=== PATIENT | male | born 1995 | race Caucasian/White ===

== ENCOUNTER 2025-01-26 13:41 | Outpatient (AMB) | payer OTHER, SELFPAY ==
--- NOTE | 2025-01-26 13:57 | MHC.PC.OV ---
Vital Signs 01/26/25 14:01 Height 5 ft 9.09 in Weight 177 lb 4 oz BMI 26.1 BP 127/66 Blood Pressure Location Rt brachial Position Sitting Respiration 16 Pulse 72 Pulse Source Pulse Oximeter Temp 97.9 F Temp Source Oral Pulse Oximetry (%) 99 Oxygen Delivery Method Room Air Intake Visit Reasons: heart issues Regulatory Affairs Intern Required: No Accompanied by: Self / Same As Patient Allergies No Known Allergies Allergy (Verified 01/26/25 13:57) Tobacco use date assessed: 01/26/25 Dental Screening Dental Screen Date: 01/26/25 Did you have a dental visit in the last 12 months?: No Did you have a dental problem in the last 6 months where you did not have access to dental care?: No Was dental information given to patient?: No HPI HPI Comments History of Present Illness Details History of Present Illness The patient is a 29-year-old male presenting with symptoms of gastroesophageal reflux disease and dysphagia. Gastroesophageal reflux disease (GERD): - The patient reports throat closure when swallowing, leading to anxiety and elevated heart rate, with a pulse reaching 178 bpm, necessitating a hospital visit where GERD was diagnosed. - Experiences severe pain when swallowing food, water, or saliva, and reports stomach gallops, suggesting significant acid reflux. - Symptoms have persisted despite medication, with increased frequency of bowel movements noted after medication use. - Initially prescribed lansoprazole 30 mg, which was ineffective, leading to a switch to pantoprazole 40 mg twice daily. - Denies any history of diabetes or hypertension, although recent blood pressure readings were elevated. Dysphagia: - Reports difficulty swallowing, with the sensation of throat closure occurring primarily when attempting to swallow food, water, or saliva. - Associated with significant pain and anxiety, exacerbating the patient's symptoms. - A barium swallow study has been ordered to assess for structural abnormalities contributing to the dysphagia. Anxiety: - Experiences anxiety secondary to the sensation of throat closure and difficulty swallowing. - Symptoms include elevated heart rate and blood pressure during episodes of dysphagia. - Management plan includes addressing the underlying GERD and dysphagia to alleviate anxiety symptoms. Hypertension: - Reports elevated blood pressure readings, with a recent measurement of 150/70 mmHg. - Appears to be episodic, correlating with anxiety and GERD symptoms. - Monitoring and management of GERD and anxiety are expected to help control blood pressure levels. Stye in the right lower lid -started 4 days ago -does not complain of pain -has not taking anything for it or done anything for it Review of Systems - Gastrointestinal: Reports dysphagia and severe pain when swallowing. Denies nausea or vomiting. - Cardiovascular: Reports elevated heart rate and blood pressure during episodes of dysphagia. Denies chest pain. - Neurological: Reports anxiety associated with swallowing difficulties. Denies headaches or dizziness. 10-point ROS reviewed and negative except as noted in HPI Past Medical History - No known history of diabetes or chronic hypertension. Health Maintenance - Advised to follow up with a cloth brushing and sueding supervisor for further evaluation of GERD and dysphagia. Physical Exam General: Well-appearing, in no acute distress. Vital signs: Blood pressure recorded as high, 150/70 something. Pulse was noted to be 178 beats per minute at one point. HEENT: Normocephalic, atraumatic. PERRLA, EOMI. Conjunctiva clear, sclera anicteric. Oropharynx clear, mucous membranes moist. TMs intact bilaterally. Neck: Supple, no lymphadenopathy, no thyromegaly, no JVD or carotid bruits. Ultrasound of the neck recommended to rule out thyroid issues due to family history. Cardiovascular: RRR, normal S1/S2, no murmurs, rubs, or gallops. Peripheral pulses 2+ and symmetric. No edema. Respiratory: Lungs clear to auscultation bilaterally, no wheezes, rales, or rhonchi. Normal effort. Abdomen: Soft, non-tender, non-distended. Normoactive bowel sounds. No hepatosplenomegaly, no masses. Patient reports dysphagia and acid indigestion. MSK: Full range of motion, no joint swelling or deformity. Normal gait. Skin: Warm, dry, intact. No rashes, lesions, or pallor. Edema of the right lower eyelid Neuro: Alert and oriented x3. Cranial nerves II-XII intact. Strength 5/5 throughout. Sensation intact. Reflexes 2+ symmetric. Normal coordination and gait. Psych: Appropriate mood and affect. Normal judgment and insight. Anxiety noted, possibly secondary to dysphagia and acid indigestion. Plan 1. Gastroesophageal Reflux Disease (Gerd) - Switch from lansoprazole to pantoprazole 40 mg twice daily to manage reflux symptoms. - Order a barium swallow study to assess for structural abnormalities. - Refer to a cloth brushing and sueding supervisor for further evaluation and management. 2. Dysphagia - Order a barium swallow study to evaluate swallowing difficulties. - Refer to a cloth brushing and sueding supervisor for further evaluation and management. 3. Anxiety - Focus on addressing underlying GERD and dysphagia to alleviate anxiety symptoms. 4. Hypertension - Advise monitoring of blood pressure, with management of GERD and anxiety expected to help control hypertension. 5-hordeolum the right lower eyelid -acetaminophen for pain -Warm compresses Discussion Notes I discussed with the patient the likely diagnosis of gastroesophageal reflux disease and the associated symptoms of dysphagia and anxiety. We reviewed the management plan, including switching to pantoprazole, ordering a barium swallow study, and referring to a cloth brushing and sueding supervisor. I emphasized the importance of follow-up to monitor symptoms and adjust treatment as necessary. Patient was informed and verbally consented to the use of an ambient scribe for clinic note documentation during this visit. Patient Instructions - Take pantoprazole 40 mg twice daily as prescribed. - Attend the scheduled barium swallow study to evaluate swallowing difficulties. - Follow up with the cloth brushing and sueding supervisor as recommended. - Monitor blood pressure regularly and report any significant changes. [facility] Medical History (Updated 01/26/25 @ 14:28 by Aiden Maradiaga MD) Dysphagia Globus pharyngeus Acid indigestion Family History (Updated 01/26/25 @ 14:05 by Oksana Portillo MA) Father No problems noted. Mother Diverticulitis High blood pressure Social History (Updated 01/26/25 @ 14:06 by Oksana Portillo MA) Housing: Apartment Alcohol intake: current Alcohol intake frequency: a few times a week Alcohol type: beer Patient Tobacco Use Status: Never used Tobacco service: Yes Current occupational status: employed Cognitive needs: No Hearing needs: No Vision needs: No Questionnaire PHQ-9 Over the last 2 weeks, how often have you been bothered by any of the following problems? 1. Little interest or pleasure in doing things: several days 2. Feeling down, depressed, or hopeless: several days 3. Trouble falling or staying asleep, or sleeping too much: more than half the days 4. Feeling tired or having little energy: more than half the days 5. Poor appetite or overeating: more than half the days 6. Feeling bad about yourself - or that you are a failure or have let yourself or your family down: not at all 7. Trouble concentrating on things, such as reading the newspaper or watching television: not at all 8. Moving or speaking so slowly that other people could have noticed. Or the opposite - being so fidgety or restless that you have been moving around a lot more than usual: more than half the days 9. Thoughts that you would be better off or of hurting yourself in some way: not at all Total score: 10 Depression Screening Interpretation: Positive Depression Screening Done: Yes Source: Developed by Drs. Joe Jensen, Rabia Alberto, Aldair Madrigal and colleagues, with an educational padmaja from [email or web address]. Thrive Questionnaire Date Thrive assessed: 01/26/25 I am a: Patient What is your living situation today?: I have a steady place to live Within the past 12 months, did the food you bought not last and you didn't have the money to get more?: Never true Within the past 12 months, did you worry whether your food would run out before you got money to buy more?: Never true Do you have trouble paying for medicines?: I choose not to answer this question Do you have trouble getting transportation to medical appointments?: No Do you have trouble paying your heating and electricity bill?: No Do you have trouble taking care of your child, family member or friend?: No Do you have trouble with day-to-day activities such as bathing, preparing meals, shopping, managing finances, etc.?: No Are you currently unemployed and looking for a job?: No Are you interested in more education?: Yes Please select the resources that you would like help with: Utilities and Childcare Currently or been in a relationship where the following occur: No concerns reported THRIVE Score: 0 AUDIT C Alcohol Use Questionnaire (AUDIT-C) 1. How often do you have a drink containing alcohol?: 2-4 times a month 2. How many drinks containing alcohol do you have on a typical day when you are drinking?: 7 to 9 3. How often do you have six or more drinks on one occasion?: Monthly Total Score: 7 Score Reviewed/Action Taken: Yes SUSU-7 AMB Questionnaire SUSU-7 Feeling nervous, anxious, or on edge: 1 = Several days Not being able to stop or control worryin = Several days Worrying too much about different things: 1 = Several days Trouble relaxin = Several days Being so restless that it is hard to sit still: 1 = Several days Becoming easily annoyed or irritable: 1 = Several days Feeling afraid as if something awful might happen: 1 = Several days Total SUSU-7 score (0-4 normal; 5-9 mild; 10-14 moderate; 15-21 severe): 7 Source: Developed by Drs. Joe Jensen, Rabia Alberto, Aldair Madrigal and colleagues, with an educational padmaja from [email or web address]. Physical exam (Primary Care) Vital Signs: Last Vital Signs Temp 97.9 F 01/26/25 14:01 Pulse 72 01/26/25 14:01 Resp 16 01/26/25 14:01 BP 127/66 01/26/25 14:01 Pulse Ox 99 01/26/25 14:01 Oxygen Delivery Method Room Air 01/26/25 14:01 BMI result Body Mass Index 26.1 Tobacco/Smoking Status: Tobacco use Status Tobacco use date assessed 01/26/25 01/26/25 13:59 Patient Tobacco Use Status Never used Tobacco 01/26/25 14:06 PHQ-9: PHQ-9 Score PHQ-9: Total score 10 01/26/25 14:09 Depression Screening Interpretation: Positive Thrive Assessment: Date of Thrive Assessment Date Thrive assessed 01/26/25 01/26/25 13:59 Currently or been in a relationship where the following occur: No concerns reported Coding Level of Care Code New Pt Level 3 (27262) Diagnoses Encounter to establish care with new provider Z76.89 Encounter for screening, unspecified Z13.9 Counseling, unspecified Z71.9 Screening for diabetes mellitus Z13.1 Screening for lipoid disorders Z13.220 Hypertension screen Z13.6 Screening for depression Z13.31 Screening for HIV (human immunodeficiency virus) Z11.4 Routine screening for STI (sexually transmitted infection) Z11.3 Alcohol abuse F10.10 Acid indigestion K30 Globus pharyngeus R09.A2 Dysphagia R13.10 Hordeolum externum right lower eyelid H00.012 Assessment & Plan Assessment & Plan (1) Encounter to establish care with new provider: Code(s): Z76.89 - Persons encountering health services in other specified circumstances (2) Encounter for screening, unspecified: Code(s): Z13.9 - Encounter for screening, unspecified (3) Counseling, unspecified: Code(s): Z71.9 - Counseling, unspecified (4) Screening for diabetes mellitus: Code(s): Z13.1 - Encounter for screening for diabetes mellitus (5) Screening for lipoid disorders: Code(s): Z13.220 - Encounter for screening for lipoid disorders (6) Hypertension screen: Code(s): Z13.6 - Encounter for screening for cardiovascular disorders (7) Screening for depression: Code(s): Z13.31 - Encounter for screening for depression (8) Screening for HIV (human immunodeficiency virus): Code(s): Z11.4 - Encounter for screening for human immunodeficiency virus [HIV] (9) Routine screening for STI (sexually transmitted infection): Code(s): Z11.3 - Encounter for screening for infections with a predominantly sexual mode of transmission (10) Alcohol abuse: Code(s): F10.10 - Alcohol abuse, uncomplicated (11) Acid indigestion: Code(s): K30 - Functional dyspepsia Category: Medical (12) Globus pharyngeus: Code(s): R09.A2 - Foreign body sensation, throat Category: Medical (13) Dysphagia: Code(s): R13.10 - Dysphagia, unspecified Category: Medical (14) Hordeolum externum right lower eyelid: Code(s): H00.012 - Hordeolum externum right lower eyelid Plan Orders: Orders Comprehensive Met. Panel Today Z13.9 - Encounter for screening, unspecified, Z76.89 - Persons encountering health services in other specified circumstances Hemoglobin A1c Today Z13.9 - Encounter for screening, unspecified, Z76.89 - Persons encountering health services in other specified circumstances Hepatitis B Surface Antigen Today Z13.9 - Encounter for screening, unspecified, Z76.89 - Persons encountering health services in other specified circumstances HIV Ab/Ag Today Z13.9 - Encounter for screening, unspecified, Z76.89 - Persons encountering health services in other specified circumstances Magnesium Today Z13.9 - Encounter for screening, unspecified, Z76.89 - Persons encountering health services in other specified circumstances UA CC w/rflx Micro + Cult Today Z13.9 - Encounter for screening, unspecified, Z76.89 - Persons encountering health services in other specified circumstances Vitamin B12 and Folate Today Z13.9 - Encounter for screening, unspecified, Z76.89 - Persons encountering health services in other specified circumstances FL barium swallow Today R09.A2 - Foreign body sensation, throat, R13.10 - Dysphagia, unspecified US soft tiss head and/or neck Today R09.A2 - Foreign body sensation, throat, R13.10 - Dysphagia, unspecified Complete Blood Count Auto Diff Today Z13.9 - Encounter for screening, unspecified, Z76.89 - Persons encountering health services in other specified circumstances Hepatitis B Surface Antibody Today Z13.9 - Encounter for screening, unspecified, Z76.89 - Persons encountering health services in other specified circumstances Hepatitis C Antibody Today Z13.9 - Encounter for screening, unspecified, Z76.89 - Persons encountering health services in other specified circumstances Lipid Panel Today Z13.9 - Encounter for screening, unspecified, Z76.89 - Persons encountering health services in other specified circumstances TSH reflex Free T4 Today Z13.9 - Encounter for screening, unspecified, Z76.89 - Persons encountering health services in other specified circumstances Vitamin D 1,25 dihydroxy Today Z13.9 - Encounter for screening, unspecified, Z76.89 - Persons encountering health services in other specified circumstances Referrals Gastroenterology Referral K30 - Functional dyspepsia, R09.A2 - Foreign body sensation, throat, R13.10 - Dysphagia, unspecified Medications: New pantoprazole 40 mg PO Q12H 28 tab-caps 0RF K30 - Functional dyspepsia simethicone (Gas Relief (simethicone)) 180 mg PO BID PRN 14 caps 0RF abdominal distention
[2025-01-26 14:01] VITALS: BP 127/66; PULSE 72; RESP 16; TEMP 36.6; O2SAT 99; BMI 26.1
== END 2025-01-26 14:40 | disposition home or self-care (01) ==
LOC: HO.HMCFMS 13:42
PROVIDERS: PCP Student in an Organized Health Care Education/Training Program; Visit Provider Student in an Organized Health Care Education/Training Program
DX: K30 Functional dyspepsia (principal); F10.10 Alcohol abuse, uncomplicated; R09.A2 Foreign body sensation, throat; R13.10 Dysphagia, unspecified; H00.012 Hordeolum externum right lower eyelid

== ENCOUNTER 2025-01-31 10:35 | Outpatient (REF) | payer OTHER, SELFPAY ==
[2025-01-31 13:41] LABS: MANUAL DIFF FLAG NO
[2025-01-31 13:44] LABS: Hematocrit 40.7 % (42.0-52.0); Hemoglobin 14.4 g/dl (14.0-18.0); Imm Gran Abs Auto 0.01 X10*3/uL (0.00-0.03); Imm Gran Pct Auto 0.2 % (0.0-0.4); Lymphocytes Absolute Auto 2.0 X10*3/uL (1.2-4.9); Mean Corpuscular HGB Conc 35.4 g/dl (31.0-36.0); Mean Corpuscular Hemoglobin 29.6 pg (27.0-33.0); Mean Corpuscular Volume 83.7 fL (80.0-98.0); NRBC Abs Auto 0.000 X10*3/uL (0.0-0.012); NRBC Pct Auto 0.0 /100WBC (0.0-0.2); Platelet Count 220 X10*3/uL (160-400); Red Blood Count 4.86 X10*6/uL (4.60-5.80); White Blood Count 5.2 X10*3/uL (4.8-10.8)
[2025-01-31 13:46] LABS: Appearance Urine Clear; Glucose Urine UA Negative (Negative); PH 8.0 (5.0-9.0); Specific Gravity - Urine <= 1.005 (1.005-1.025)
[2025-01-31 14:03] LABS: Alanine Aminotransferase 25 U/L (0-40); Albumin Level 5.0 g/dL (3.5-5.0); Alkaline Phosphatase 53 U/L (39-117); Anion Gap 11 (12-20); Aspartate Amino Transferase 28 U/L (5-37); Blood Urea Nitrogen 11 mg/dL (9-16); Calcium 9.7 mg/dL (8.4-10.2); Carbon Dioxide 29 mmol/L (22-29); Chloride 105 mmol/L (96-108); Cholesterol 138 mg/dL (<200); Estimated Glomerular Filt Rate > 60; HDL Cholesterol 35 mg/dL (>40); Magnesium 2.1 mg/dL (1.6-2.6); Potassium 4.1 mmol/L (3.3-5.1); Sodium 141 mmol/L (135-145); Total Protein 7.5 g/dL (6.5-8.0); Triglycerides 92 mg/dL (<150)
[2025-01-31 14:15] LABS: HBsAGNum1 0.39 S/CO (0.00-0.99); HIV Num 1 0.10 S/CO (0.00-0.99); Hepatitis B Surface Antigen Negative (Negative); ~HepC Num1 0.09 S/CO (0.00-0.79); ~Hepatitis B Surface Antibody REACTIVE (Nonreactive); ~Hepatitis C Antibody Nonreactive (Nonreactive)
[2025-01-31 14:32] LABS: Folate 8.7 ng/mL (> or = 4.0); Vitamin B12 421 pg/mL (200-900)
[2025-02-06 13:48] LABS: VITAMIN D (1,25 OH) D3 38 pg/mL; Vit D (1,25-Dihydroxy) Total 38 pg/mL (18-72); Vitamin D (1,25 OH) D2 <8 pg/mL
== END 2025-01-31 10:36 | disposition home or self-care (01) ==
LOC: HO.HMGCLDS 10:35
PROVIDERS: PCP Student in an Organized Health Care Education/Training Program; Visit Provider Student in an Organized Health Care Education/Training Program
DX: Z13.1 Encounter for screening for diabetes mellitus (principal); Z13.6 Encounter for screening for cardiovascular disorders; Z13.29 Encounter for screening for other suspected endocrine disorder; Z76.89 Persons encountering health services in other specified circumstances
CPT/HCPCS: 36415; 80053; 80061; 81003; 82607; 82652; 82746; 83036; 83735; 84443; 85025; 86706; 86803; 87340; 87389

== ENCOUNTER 2025-02-10 08:22 | Outpatient (REF) | payer OTHER, SELFPAY ==
--- NOTE | ~2025-02-10 | FL_ITS ---
EXAMINATION: XR FLUOROSCOPY BARIUM SWALLOW CLINICAL INFORMATION: Dysphagia with pills, foreign body sensation in the throat. COMPARISON: None TECHNIQUE: Fluoroscopic air contrast barium swallow examination was performed utilizing standard techniques with thin and thick barium and effervescent granules. Numerous spot images were obtained. Several fluoroscopic image hold cine sequences were also obtained. FINDINGS: BARIUM SWALLOW: Lateral cine images of the oropharynx and hypopharynx demonstrate normal swallow mechanism with normal epiglottic inversion and soft palate elevation. No laryngeal penetration, glottic or subglottic aspiration identified. Hypopharyngeal structures appear normal without evidence of mass or diverticulum. There was no significant cricopharyngeal achalasia. Dual and single contrast images of the esophagus demonstrate normal caliber, contour, and mucosal pattern. No evidence of stricture, mass, or ulcerations identified. Esophageal peristalsis was normal. A 13 mm barium tablet given with water passed into the stomach without delay No evidence of hiatus hernia identified. No significant gastroesophageal reflux was seen during the course of the examination and on reflux views. Dual contrast and single contrast images of the stomach demonstrated normal contour without evidence of mass or ulceration. Diffuse prominence of the areae gastricae noted, suggesting changes of gastritis. Normal rugal fold pattern. Contrast freely passed into the gastric antrum and duodenal bulb without delay. FLUOROSCOPY TIME: 2 minutes, 24 seconds Number of Spot Images:8 Number of cines obtained: 7 DOSE AREA PRODUCT: 2243 uGy-m2 (microgray-meter squared) FL/FL barium swallow with air IMPRESSION: 1. No definite gastroesophageal reflux. Normal appearing esophagus. 2. A 13 mm barium tablet passed into the stomach without delay. 3. Diffuse prominence of the areae gastricae noted, suggesting changes of gastritis. Electronically signed by: Heri Winkler MD 02/10/2025 10:48 AM EDT
== END 2025-02-10 08:23 | disposition home or self-care (01) ==
LOC: HO.XRAY 08:22
PROVIDERS: PCP Student in an Organized Health Care Education/Training Program; Visit Provider Student in an Organized Health Care Education/Training Program
DX: R09.A2 Foreign body sensation, throat (principal); R13.10 Dysphagia, unspecified
CPT/HCPCS: 74221

== ENCOUNTER → 2025-02-10 08:23 | Outpatient (BNV) | payer OTHER, SELFPAY | PROVIDERS: PCP Student in an Organized Health Care Education/Training Program; Visit Provider Radiology Diagnostic Radiology | DX: R09.A2 Foreign body sensation, throat (principal) | CPT/HCPCS: 74221 ==

== ENCOUNTER 2025-02-24 14:17 | Outpatient (AMB) | payer OTHER, SELFPAY ==
--- NOTE | 2025-02-24 14:24 | A.OFFPC_ITS ---
Vital Signs 02/24/25 14:25 Height 5 ft 9.09 in Weight 177 lb 6 oz BMI 26.1 BP 115/56 L Blood Pressure Location Lt brachial Position Sitting Pulse 86 Pulse Source Pulse Oximeter Temp 97.5 F Temp Source Oral Pulse Oximetry (%) 99 Oxygen Delivery Method Room Air Intake Visit Reasons: follow up imaging Gravity Prospector Required: No Accompanied by: Self / Same As Patient Allergies No Known Allergies Allergy (Verified 02/24/25 14:25) Tobacco use date assessed: 02/24/25 Dental Screening Dental Screen Date: 02/24/25 Did you have a dental visit in the last 12 months?: No Did you have a dental problem in the last 6 months where you did not have access to dental care?: No Was dental information given to patient?: No HPI HPI Comments History of Present Illness Details Consent Patient was informed and verbally consented to the use of an ambient scribe for clinic note documentation during this visit. History of Present Illness The patient is a 29-year-old male presenting with follow-up for gastritis management. Gastritis: The patient was seen in the emergency department on 02/21 for dehydration and gastritis. A barium swallow was performed, revealing a prominent gastroesophageal nodule suggestive of gastritis. There was no evidence of gastroesophageal reflux disease, and the esophageal appearance was normal. Currently, the patient is on pantoprazole, which is reported to be helpful in alleviating symptoms. He expressed challenges with recurrent episodes linked to alcohol consumption involving dehydration. Constipation: The patient reports experiencing constipation, described as estre?imiento , without providing a specific duration. He indicated dietary habits perceived as normal but requiring the intervention of MiraLAX for resolution. Surgical History: - No past surgical history reported. Medications: - Pantoprazole 40 mg twice daily for gas tritis management - Simethicone for gas relief Social History: - Alcohol consumption: The patient ackno wledged recent excessive alcohol consumption leading to dehydration episodes. Diagnostic Results: - Barium Swallow: No evidence of gastroe sophageal reflux disease, normal- appearing esophagus, with a prominent gastroesophageal nodule indicative of gastritis. A 13-mm barium bolus passed to the stomach without delay. Review of Systems - Gastrointestinal: Reports constipation . No reports of other gastrointestinal symptoms. - General: Denies new onset distress oth er than dehydration related to alcohol consumption. 10-point ROS reviewed and negative excep t as noted in HPI Past Medical History - Gastritis: Diagnosed and treated after emergency department visit on 02/21. - Dehydration: Linked to excessive alcoh ol consumption. Health Maintenance - Advised on the importance of staying h ydrated, particularly in the context of alcohol consumption. Physical Exam General: Well-appearing, in no acute distress. Vital signs: Within normal limits. HEENT: Normocephalic, atraumatic. PERRLA, EOMI. Conjunctiva clear, sclera anicteric. Oropharynx clear, mucous membranes moist. TMs intact bilaterally. Neck: Supple, no lymphadenopathy, no thyromegaly, no JVD or carotid bruits. Cardiovascular: RRR, normal S1/S2, no murmurs, rubs, or gallops. Peripheral pulses 2+ and symmetric. No edema. Respiratory: Lungs clear to auscultation bilaterally, no wheezes, rales, or rhonchi. Normal effort. Abdomen: Soft, non-tender, non-distended. Normoactive bowel sounds. No hepatosplenomegaly, no masses. Recent imaging shows no definite gastric issues, no definite GERD, and a normal appearing esophagus. A 13-mm barium Tylenol passe d to the stomach without delay, with prominence of the gastroesophageal nodule suggesting changes of gastritis. Patient reports constipation and is advised to take MiraLAX. MSK: Full range of motion, no joint swelling or deformity. Normal gait. Skin: Warm, dry, intact. No rashes, lesions, or pallor. Neuro: Alert and oriented x3. Cranial nerves II-XII intact. Strength 5/5 throughout. Sensation intact. Reflexes 2+ symmetric. Normal coordination and gait. Psych: Appropriate mood and affect. Normal judgment and insight. Plan 1. Gastritis - Continue pantoprazole 40 mg twice marko y. Monitor response to the medication. - Discussed potential impact of alcohol on gastritis and emphasized minimizing alcohol consumption. - Encourage adequate hydration, especial ly in settings where alcohol is consumed. 2. Constipation - Initiate MiraLAX, instruct to take one dose at night and one in the morning until regular bowel movements are achieved. - Advise to maintain a balanced diet hig h in fiber, alongside adequate fluid intake. Discussion Notes I reviewed the imaging and history of gastritis with the patient, emphasizing the importance of pantoprazole in managing symptoms. We discussed the relationship between alcohol use and dehydration, highlighting the previous emergency department visit. I provided educational guidance on alcohol moderation and strategies to maintain hydration. I have prescribed MiraLAX to address the patient's constipation, focusing on the importance of fiber-rich diets and fluids. Patient Instructions - Continue pantoprazole as prescribed. - Use MiraLAX as directed, adjusting to one dose at night upon symptom improvement. - Limit alcohol intake and consume water or Gatorade to prevent dehydration. - Follow a diet rich in fiber to allevia te constipation. Medical Decision Making Upon evaluating the patient's presenting gastritis confirmed by the recent imaging, I decided to continue with the current regimen of pantoprazole, given its efficacy in symptom mitigation. The significance of alcohol avoidance was underscored due to its potential exacerbation of gastritis symptoms. Initiation of MiraLAX was chosen based on the patient's history of constipation, with the directive to modify the dose based on symptomatic improvement, prioritizing the amelioration of digestive regularity and hydration status. Total time spent caring for the patient today was 30 minutes. This includes time spent before the visit reviewing the chart, time spent documenting, and time spent reviewing laboratory results, diagnostic imaging, medications, performing a medically necessary evaluation, counseling on diagnoses, care coordination, ordering appropriate tests, ordering appropriate medications, review of tests performed by other providers, reporting test results with the patient. [facility] Medical History Dysphagia Globus pharyngeus Acid indigestion Family History Father No problems noted. Mother Diverticulitis High blood pressure Social History Housing: Apartment Alcohol intake: current Alcohol intake frequency: a few times a week Alcohol type: beer Patient Tobacco Use Status: Never used Tobacco service: Yes Current occupational status: employed Cognitive needs: No Hearing needs: No Vision needs: No Questionnaire PHQ-9 Over the last 2 weeks, how often have you been bothered by any of the following problems? 1. Little interest or pleasure in doing things: several days 2. Feeling down, depressed, or hopeless: several days 3. Trouble falling or staying asleep, or sleeping too much: more than half the days 4. Feeling tired or having little energy: more than half the days 5. Poor appetite or overeating: more than half the days 6. Feeling bad about yourself - or that you are a failure or have let yourself or your family down: not at all 7. Trouble concentrating on things, such as reading the newspaper or watching television: not at all 8. Moving or speaking so slowly that other people could have noticed. Or the opposite - being so fidgety or restless that you have been moving around a lot more than usual: more than half the days 9. Thoughts that you would be better off or of hurting yourself in some way: not at all Total score: 10 Depression Screening Interpretation: Positive Depression Screening Done: Yes Source: Developed by Drs. Joe Jensen, Rabia Alberto, Aldair Madrigal and colleagues, with an educational padmaja from [employer]. Thrive Questionnaire Date Thrive assessed: 02/24/25 I am a: Patient What is your living situation today?: I have a steady place to live Within the past 12 months, did the food you bought not last and you didn't have the money to get more?: Never true Within the past 12 months, did you worry whether your food would run out before you got money to buy more?: Never true Do you have trouble paying for medicines?: I choose not to answer this question Do you have trouble getting transportation to medical appointments?: No Do you have trouble paying your heating and electricity bill?: No Do you have trouble taking care of your child, family member or friend?: No Do you have trouble with day-to-day activities such as bathing, preparing meals, shopping, managing finances, etc.?: No Are you currently unemployed and looking for a job?: No Are you interested in more education?: Yes Please select the resources that you would like help with: Utilities and Childcare Currently or been in a relationship where the following occur: No concerns reported THRIVE Score: 0 AUDIT C Alcohol Use Questionnaire (AUDIT-C) 1. How often do you have a drink containing alcohol?: 2-4 times a month 2. How many drinks containing alcohol do you have on a typical day when you are drinking?: 7 to 9 3. How often do you have six or more drinks on one occasion?: Monthly Total Score: 7 Score Reviewed/Action Taken: Yes SUSU-7 AMB Questionnaire SUSU-7 Date SUSU - 7 assessed: 02/24/25 Feeling nervous, anxious, or on edge: 1 = Several days Not being able to stop or control worryin = Several days Worrying too much about different things: 1 = Several days Trouble relaxin = Several days Being so restless that it is hard to sit still: 1 = Several days Becoming easily annoyed or irritable: 1 = Several days Feeling afraid as if something awful might happen: 1 = Several days Total SUSU-7 score (0-4 normal; 5-9 mild; 10-14 moderate; 15-21 severe): 7 Source: Developed by Drs. Joe Jensen, Rabia Alberto, Aldair Madrigal and colleagues, with an educational padmaja from [employer]. Physical exam (Primary Care) Vital Signs: Last Vital Signs Temp 97.5 F 02/24/25 14:25 Pulse 86 02/24/25 14:25 BP 115/56 L 02/24/25 14:25 Pulse Ox 99 02/24/25 14:25 Oxygen Delivery Method Room Air 02/24/25 14:25 BMI result Body Mass Index 26.1 Tobacco/Smoking Status: Tobacco use Status Tobacco use date assessed 02/24/25 02/24/25 14:26 Patient Tobacco Use Status Never used Tobacco 02/24/25 14:26 PHQ-9: PHQ-9 Score PHQ-9: Total score 10 02/24/25 14:26 Depression Screening Interpretation: Positive Thrive Assessment: Date of Thrive Assessment Date Thrive assessed 02/24/25 02/24/25 14:26 Currently or been in a relationship where the following occur: No concerns reported Office Procedures Flu Questionnaire Does the patient have a severe egg allergy?: No Does the patient have severe life threatening allergies?: No Does the patient have a fever or illness today?: No Has the patient ever had Guillain-[place] Syndrome?: No Has the patient ever had any past reaction to a flu shot?: No Immunizations Fluarix [id number] (PF) 45 mcg (15 mcg x 3)/0.5 mL IM syringe Performing Provider: Aiden Maradiaga MD [facility] Documented (not given) by: America Ferrara CMA on 02/24/25 14:32 Reason Not Given: Patient Refused Coding Level of Care Code Est Pt Level 4 (22870) Diagnoses Gastritis K29.70 Constipation K59.00 History of alcohol abuse F10.11 Assessment & Plan Assessment & Plan (1) Gastritis: Code(s): K29.70 - Gastritis, unspecified, without bleeding (2) Constipation: Code(s): K59.00 - Constipation, unspecified (3) History of alcohol abuse: Code(s): F10.11 - Alcohol abuse, in remission Plan Orders: Orders Influenza [id number] Immunization 02/24/25 Z23 - Encounter for immunization Medications: New polyethylene glycol 3350 (Miralax) 17 grams PO BID 476 grams 0RF
--- NOTE | 2025-02-24 14:24 | A.OFFPC_ITS ---
Vital Signs 02/24/25 14:25 Height 5 ft 9.09 in Weight 177 lb 6 oz BMI 26.1 BP 115/56 L Blood Pressure Location Lt brachial Position Sitting Pulse 86 Pulse Source Pulse Oximeter Temp 97.5 F Temp Source Oral Pulse Oximetry (%) 99 Oxygen Delivery Method Room Air Intake Visit Reasons: follow up imaging Allergies No Known Allergies Allergy (Verified 02/24/25 14:25) Tobacco use date assessed: 01/26/25 Dental Screening Dental Screen Date: 01/26/25 HPI HPI Comments History of Present Illness Details Consent Patient was informed and verbally consented to the use of an ambient scribe for clinic note documentation during this visit. History of Present Illness The patient is a 29-year-old male presenting with follow-up for gastritis management. Gastritis: The patient was seen in the emergency department on 02/21 for dehydration and gastritis. A barium swallow was performed, revealing a prominent gastroesophageal nodule suggestive of gastritis. There was no evidence of gastroesophageal reflux disease, and the esophageal appearance was normal. Currently, the patient is on pantoprazole, which is reported to be helpful in alleviating symptoms. He expressed challenges with recurrent episodes linked to alcohol consumption involving dehydration. Constipation: The patient reports experiencing constipation, described as estre?imiento , without providing a specific duration. He indicated dietary habits perceived as normal but requiring the intervention of MiraLAX for resolution. Surgical History: - No past surgical history reported. Medications: - Pantoprazole 40 mg twice daily for gas tritis management - Simethicone for gas relief Social History: - Alcohol consumption: The patient ackno wledged recent excessive alcohol consumption leading to dehydration episodes. Diagnostic Results: - Barium Swallow: No evidence of gastroe sophageal reflux disease, normal- appearing esophagus, with a prominent gastroesophageal nodule indicative of gastritis. A 13-mm barium bolus passed to the stomach without delay. Review of Systems - Gastrointestinal: Reports constipation . No reports of other gastrointestinal symptoms. - General: Denies new onset distress oth er than dehydration related to alcohol consumption. 10-point ROS reviewed and negative excep t as noted in HPI Past Medical History - Gastritis: Diagnosed and treated after emergency department visit on 02/21. - Dehydration: Linked to excessive alcoh ol consumption. Health Maintenance - Advised on the importance of staying h ydrated, particularly in the context of alcohol consumption. Physical Exam General: Well-appearing, in no acute distress. Vital signs: Within normal limits. HEENT: Normocephalic, atraumatic. PERRLA, EOMI. Conjunctiva clear, sclera anicteric. Oropharynx clear, mucous membranes moist. TMs intact bilaterally. Neck: Supple, no lymphadenopathy, no thyromegaly, no JVD or carotid bruits. Cardiovascular: RRR, normal S1/S2, no murmurs, rubs, or gallops. Peripheral pulses 2+ and symmetric. No edema. Respiratory: Lungs clear to auscultation bilaterally, no wheezes, rales, or rhonchi. Normal effort. Abdomen: Soft, non-tender, non-distended. Normoactive bowel sounds. No hepatosplenomegaly, no masses. Recent imaging shows no definite gastric issues, no definite GERD, and a normal appearing esophagus. A 13-mm barium Tylenol passed to the stomach without delay, with prominence of the gastroesophageal nodule suggesting changes of gastritis. Patient reports constipation and is advised to take MiraLAX. MSK: Full range of motion, no joint swelling or deformity. Normal gait. Skin: Warm, dry, intact. No rashes, lesions, or pallor. Neuro: Alert and oriented x3. Cranial nerves II-XII intact. Strength 5/5 throughout. Sensation intact. Reflexes 2+ symmetric. Normal coordination and gait. Psych: Appropriate mood and affect. Normal judgment and insight. Plan 1. Gastritis - Continue pantoprazole 40 mg twice marko y. Monitor response to the medication. - Discussed potential impact of alcohol on gastritis and emphasized minimizing alcohol consumption. - Encourage adequate hydration, especial ly in settings where alcohol is consumed. 2. Constipation - Initiate MiraLAX, instruct to take one dose at night and one in the morning until regular bowel movements are achieved. - Advise to maintain a balanced diet hig h in fiber, alongside adequate fluid intake. Discussion Notes I reviewed the imaging and history of gastritis with the patient, emphasizing the importance of pantoprazole in managing symptoms. We discussed the relationship between alcohol use and dehydration, highlighting the previous emergency department visit. I provided educational guidance on alcohol moderation and strategies to maintain hydration. I have prescribed MiraLAX to address the patient's constipation, focusing on the importance of fiber-rich diets and fluids. Patient Instructions - Continue pantoprazole as prescribed. - Use MiraLAX as directed, adjusting to one dose at night upon symptom improvement. - Limit alcohol intake and consume water or Gatorade to prevent dehydration. - Follow a diet rich in fiber to allevia te constipation. Medical Decision Making Upon evaluating the patient's presenting gastritis confirmed by the recent imaging, I decided to continue with the current regimen of pantoprazole, given its efficacy in symptom mitigation. The significance of alcohol avoidance was underscored due to its potential exacerbation of gastritis symptoms. Initiation of MiraLAX was chosen based on the patient's history of constipation, with the directive to modify the dose based on symptomatic improvement, prioritizing the amelioration of digestive regularity and hydration status. Total time spent caring for the patient today was 30 minutes. This includes time spent before the visit reviewing the chart, time spent documenting, and time spent reviewing laboratory results, diagnostic imaging, medications, performing a medically necessary evaluation, counseling on diagnoses, care coordination,. PFSH Medical History Dysphagia Globus pharyngeus Acid indigestion Family History Father No problems noted. Mother Diverticulitis High blood pressure Social History Housing: Apartment Alcohol intake: current Alcohol intake frequency: a few times a week Alcohol type: beer Patient Tobacco Use Status: Never used Tobacco service: Yes Current occupational status: employed Cognitive needs: No Hearing needs: No Vision needs: No Questionnaire Thrive Questionnaire Date Thrive assessed: 01/26/25 I am a: Patient What is your living situation today?: I have a steady place to live Within the past 12 months, did the food you bought not last and you didn't have the money to get more?: Never true Within the past 12 months, did you worry whether your food would run out before you got money to buy more?: Never true Do you have trouble paying for medicines?: I choose not to answer this question Do you have trouble getting transportation to medical appointments?: No Do you have trouble paying your heating and electricity bill?: No Do you have trouble taking care of your child, family member or friend?: No Do you have trouble with day-to-day activities such as bathing, preparing meals, shopping, managing finances, etc.?: No Are you currently unemployed and looking for a job?: No Are you interested in more education?: Yes Currently or been in a relationship where the following occur: No concerns reported THRIVE Score: 0 Physical exam (Primary Care) Vital Signs: Last Vital Signs Temp 97.5 F 02/24/25 14:25 Pulse 86 02/24/25 14:25 BP 115/56 L 02/24/25 14:25 Pulse Ox 99 02/24/25 14:25 Oxygen Delivery Method Room Air 02/24/25 14:25 BMI result Body Mass Index 26.1 Tobacco/Smoking Status: Tobacco use Status Tobacco use date assessed 02/24/25 02/24/25 14:26 Patient Tobacco Use Status Never used Tobacco 02/24/25 14:26 PHQ-9: PHQ-9 Score PHQ-9: Total score 10 02/25/25 07:57 Thrive Assessment: Date of Thrive Assessment Date Thrive assessed 02/24/25 02/24/25 14:26 Currently or been in a relationship where the following occur: No concerns reported Office Procedures Flu Questionnaire Does the patient have a severe egg allergy?: No Does the patient have severe life threatening allergies?: No Does the patient have a fever or illness today?: No Has the patient ever had Guillain-[place] Syndrome?: No Has the patient ever had any past reaction to a flu shot?: No Immunizations Fluarix [id number] (PF) 45 mcg (15 mcg x 3)/0.5 mL IM syringe Performing Provider: Aiden Maradiaga MD Performing Location: [facility] [place] [facility] Documented (not given) by: America Ferrara CMA on 02/24/25 14:32 Reason Not Given: Patient Refused Coding Level of Care Code Est Pt Level 4 (71770) Diagnoses Gastritis K29.70 Constipation K59.00 History of alcohol abuse F10.11 Assessment & Plan Assessment & Plan (1) Gastritis: Code(s): K29.70 - Gastritis, unspecified, without bleeding (2) Constipation: Code(s): K59.00 - Constipation, unspecified (3) History of alcohol abuse: Code(s): F10.11 - Alcohol abuse, in remission Orders: Orders Influenza [id number] Immunization 02/24/25 Z23 - Encounter for immunization Medications: New polyethylene glycol 3350 (Miralax) 17 grams PO BID 476 grams 0RF
[2025-02-24 14:25] VITALS: BP 115/56; PULSE 86; TEMP 36.4; O2SAT 99; BMI 26.1
== END 2025-02-24 14:46 | disposition home or self-care (01) ==
LOC: HO.HMCFMS 14:18
PROVIDERS: PCP Student in an Organized Health Care Education/Training Program; Visit Provider Student in an Organized Health Care Education/Training Program
DX: Z23 Encounter for immunization (principal)

== ENCOUNTER → 2025-02-24 14:17 | Outpatient (BNVA) | payer OTHER, SELFPAY | PROVIDERS: PCP Student in an Organized Health Care Education/Training Program; Visit Provider Student in an Organized Health Care Education/Training Program | DX: K29.70 Gastritis, unspecified, without bleeding (principal); K59.00 Constipation, unspecified; F10.11 Alcohol abuse, in remission; Z79.899 Other long term (current) drug therapy; Z13.31 Encounter for screening for depression; Z13.39 Encounter for screening examination for other mental health and behavioral disorders | CPT/HCPCS: 90471; 96127 ==

== ENCOUNTER 2025-03-25 15:56 | Outpatient (AMB) | payer OTHER, SELFPAY ==
--- NOTE | 2025-03-25 16:04 | MHC.PC.OV ---
Vital Signs 03/25/25 16:07 Height 5 ft 9.09 in Weight 176 lb BMI 25.9 BP 135/75 Blood Pressure Location Rt brachial Position Sitting Respiration 16 Pulse 66 Pulse Source Monitor Temp 97.8 F Temp Source Oral Pulse Oximetry (%) 100 Oxygen Delivery Method Room Air Intake Visit Reasons: rescheduled Intake Note: follow up [employer] Required: No Accompanied by: Self / Same As Patient Allergies No Known Allergies Allergy (Verified 03/25/25 16:06) Medication List - Last Reconciled 03/25/25 by Aiden Maradiaga MD azelastine 2 sprays intranasal DAILY cetirizine 10 mg PO DAILY pantoprazole 40 mg PO Q12H phenylephrine HCl (Sinus PE Decongestant) 10 mg PO Q4-6H PRN terbinafine HCl 250 mg PO DAILY Tobacco use date assessed: 02/24/25 Dental Screening Dental Screen Date: 02/24/25 HPI HPI Comments History of Present Illness Details History of Present Illness The patient is a 29 year old individual presenting with multiple complaints, including neck pain with associated hand numbness, a fungal toenail infection, and sinus pressure with nasal congestion. Neck Pain: The patient reports that while stretching the neck about two days ago, the patient heard a crack and subsequently developed numbness in the hands, which has been persistent. Onychomycosis: The patient has a toenail with a fungal infection that has been slow to heal. This is the only affected nail. Sinusitis: The patient reports experiencing nasal congestion and sinus pressure. 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 Past Medical History Health Maintenance - Recommended liver function testing at 45 days after initiating terbinafine therapy to monitor for hepatotoxicity. [facility] Medical History (Updated 03/25/25 @ 16:50 by Aiden Maradiaga MD) Sinusitis Neck pain, musculoskeletal Onychomycosis Dysphagia Globus pharyngeus Acid indigestion Family History Father No problems noted. Mother Diverticulitis High blood pressure Social History (Updated 03/25/25 @ 16:07 by Kaleb Siegel CMA) Housing: Apartment Alcohol intake: current Alcohol intake frequency: a few times a week Alcohol type: beer Patient Tobacco Use Status: Never used Tobacco e-Cigarette/Vaping Use: Never Used service: Yes Current occupational status: employed Cognitive needs: No Hearing needs: No Vision needs: No Questionnaire Thrive Questionnaire Date Thrive assessed: 01/26/25 I am a: Patient What is your living situation today?: I have a steady place to live Within the past 12 months, did the food you bought not last and you didn't have the money to get more?: Never true Within the past 12 months, did you worry whether your food would run out before you got money to buy more?: Never true Do you have trouble paying for medicines?: I choose not to answer this question Do you have trouble getting transportation to medical appointments?: No Do you have trouble paying your heating and electricity bill?: No Do you have trouble taking care of your child, family member or friend?: No Do you have trouble with day-to-day activities such as bathing, preparing meals, shopping, managing finances, etc.?: No Are you currently unemployed and looking for a job?: No Are you interested in more education?: Yes Currently or been in a relationship where the following occur: No concerns reported THRIVE Score: 0 SUSU-7 AMB Questionnaire SUSU-7 Date SUSU - 7 assessed: 02/24/25 Source: Developed by Drs. Joe Jensen, Rabia Alberto, Aldair Madrigal and colleagues, with an educational padmaja from [employer]. Review of Systems Narrative Review of Systems - Skin: toenail with fungus. - ENT: Reports nasal congestion and sinus pressure. - Musculoskeletal: Reports neck pain. - Gastrointestinal: Reports stomach upset. 10-point ROS reviewed and negative except as noted in HPI Physical exam (Primary Care) Vital Signs: Last Vital Signs Temp 97.8 F 03/25/25 16:07 Pulse 66 03/25/25 16:07 Resp 16 03/25/25 16:07 BP 135/75 03/25/25 16:07 Pulse Ox 100 03/25/25 16:07 Oxygen Delivery Method Room Air 03/25/25 16:07 BMI result Body Mass Index 25.9 Tobacco/Smoking Status: Tobacco use Status Tobacco use date assessed 02/24/25 03/25/25 16:10 Patient Tobacco Use Status Never used Tobacco 03/25/25 16:10 e-Cigarette/Vaping Use Never Used 03/25/25 16:10 Thrive Assessment: Date of Thrive Assessment Date Thrive assessed 01/26/25 03/25/25 16:10 Currently or been in a relationship where the following occur: No concerns reported Narrative Physical Exam General: Well-appearing, in no acute distress. Vital signs: Within normal limits. HEENT: Normocephalic, atraumatic. PERRLA, EOMI. Conjunctiva clear, sclera anicteric. Oropharynx clear, mucous membranes moist. TMs intact bilaterally. Nasal congestion and sinus pressure noted. Neck: Supple, no lymphadenopathy, no thyromegaly, no JVD or carotid bruits. Patient reports neck pain with cracking and numbness in hands. Cardiovascular: RRR, normal S1/S2, no murmurs, rubs, or gallops. Peripheral pulses 2+ and symmetric. No edema. Respiratory: Lungs clear to auscultation bilaterally, no wheezes, rales, or rhonchi. Normal effort. Patient reports feeling like smoking due to weather. Abdomen: Soft, non-tender, non-distended. Normoactive bowel sounds. No hepatosplenomegaly, no masses. Patient reports stomach issues. MSK: Full range of motion, no joint swelling or deformity. Normal gait. Patient reports a leg trying to heal. Skin: Warm, dry, intact. No rashes, lesions, or pallor. Fungal infection noted on left big toe nail. Neuro: Alert and oriented x3. Cranial nerves II-XII intact. Strength 5/5 throughout. Sensation intact. Reflexes 2+ symmetric. Normal coordination and gait. Psych: Appropriate mood and affect. Normal judgment and insight. Coding Level of Care Code Est Pt Level 3 (40425) Diagnoses Acid indigestion K30 Onychomycosis B35.1 Neck pain, musculoskeletal M54.2 Sinusitis J32.9 Assessment & Plan Assessment & Plan (1) Acid indigestion: Code(s): K30 - Functional dyspepsia Category: Medical (2) Onychomycosis: Code(s): B35.1 - Tinea unguium Category: Medical (3) Neck pain, musculoskeletal: Code(s): M54.2 - Cervicalgia Category: Medical (4) Sinusitis: Code(s): J32.9 - Chronic sinusitis, unspecified Category: Medical Plan Consent The risks of taking terbinafine, specifically its potential to adversely affect the liver, were discussed with the patient. The patient was informed of the need for liver function monitoring via a laboratory test at 45 days into the 90-day treatment course. Patient was informed and verbally consented to the use of an ambient scribe for clinic note documentation during this visit. Plan 1. Sinusitis And Allergic Rhinitis - Recommended supportive care, including Tylenol as needed. - Prescribed a nasal spray. - Prescribed an allergy medication. - Prescribed a decongestant, 10 mg every 4-6 hours as needed, to relieve pressure. 2. Onychomycosis - Prescribed terbinafine 250 mg to be taken once daily. - The course of treatment will be 90 days. - A liver function laboratory test is required at 45 days to monitor for potential side effects. 3. Dyspepsia - Prescribed pantoprazole. Discussion Notes I discussed the management plan for the patient's sinus symptoms, which includes supportive care with Tylenol, a nasal spray, an antihistamine, and a decongestant. For the toenail fungus, I prescribed terbinafine 250 mg daily for 90 days. I explained the risk of hepatotoxicity associated with this medication and emphasized the requirement for a liver function test at the 45-day danielle to ensure safety. I also prescribed pantoprazole for the patient's reported stomach issues. I reviewed the dosing for the decongestant (10 mg every 4-6 hours as needed) and terbinafine (one tablet daily). Patient Instructions - You may take Tylenol if needed for your sinus symptoms. - Use the prescribed nasal spray, allergy medicine, and decongestant to help with sinus pressure and congestion. - You can take the decongestant (10 mg) every 4 to 6 hours as you need it. - For the fungus on your toenail, take one Terbinafine 250 mg pill every day for 90 days. - It is very important that you get a blood test to check your liver in 45 days, because the fungus medicine can affect it. - Take the prescribed pantoprazole for your stomach. Medical Decision Making The patient presented with several distinct complaints. The symptoms of nasal congestion and sinus pressure were addressed with a multi-faceted approach, including a nasal spray, an antihistamine for a possible allergic component, and a decongestant for symptomatic relief. For the clinical presentation of onychomycosis, systemic antifungal therapy with terbinafine 250 mg daily for 90 days was initiated, which is a standard treatment regimen. Due to the known risk of hepatotoxicity with this medication, a safety protocol involving a liver function panel at the 45-day midpoint of therapy is required for monitoring. Pantoprazole was prescribed to address the patient's dyspeptic symptoms. The patient's report of acute neck pain with radiating numbness following stretching was noted, but a specific diagnostic workup or treatment was deferred at this visit, with general analgesia recommended for other complaints potentially providing some relief. Total Time Statement 20 min Total time spent caring for the patient today includes pre-visit chart review, documentation, review of laboratory and diagnostic imaging results, medication reconciliation, medically necessary evaluation, counseling on diagnoses, care coordination, ordering appropriate tests and medications, review of tests performed by other providers, reporting test results to the patient, and communication with other healthcare providers. Medications: New cetirizine 10 mg PO DAILY 90 tabs 0RF azelastine administer into each nostril 2 sprays intranasal DAILY 30 mL 0RF phenylephrine HCl (Sinus PE Decongestant) 10 mg PO Q4-6H PRN 20 tabs 0RF nasal congestion terbinafine HCl 250 mg PO DAILY 45 tabs 0RF Refilled pantoprazole 40 mg PO Q12H 28 tabs 0RF K30 - Functional dyspepsia
[2025-03-25 16:07] VITALS: BP 135/75; PULSE 66; RESP 16; TEMP 36.6; O2SAT 100; BMI 25.9
== END 2025-03-25 16:21 | disposition home or self-care (01) ==
LOC: HO.HMCFMS 15:56
PROVIDERS: PCP Student in an Organized Health Care Education/Training Program; Visit Provider Student in an Organized Health Care Education/Training Program
DX: K30 Functional dyspepsia (principal); B35.1 Tinea unguium; M54.2 Cervicalgia; J32.9 Chronic sinusitis, unspecified

== ENCOUNTER 2025-03-30 14:29 | Outpatient (REF) | payer OTHER, SELFPAY ==
--- NOTE | ~2025-03-30 | US_ITS ---
EXAMINATION: US THYROID HISTORY: R13.10 - Dysphagia, unspecified TECHNIQUE: Real-time grayscale ultrasound imaging was performed and images were reviewed. COMPARISON: There are no prior studies available for comparison. FINDINGS: SIZE: The thyroid gland is normal in size. The right thyroid lobe measures 4.7 x 1.2 x 1.6 cm. The left thyroid lobe measures 4.1 x 1.3 x 1.7 cm. The isthmus measures 0.3 mm. FLOW: Flow to the gland is normal. ECHOGENICITY: The echotexture of the gland is normal. NODULES: No suspicious nodules. 3 x 1 x 2 mm cyst in the upper left lobe. No lymphadenopathy. No parathyroid adenoma. US/US thyroid IMPRESSION: Unremarkable thyroid ultrasound. No suspicious nodule. Electronically signed by: Liliana Serna MD 03/30/2025 04:35 PM [facility]
== END 2025-03-30 14:30 | disposition home or self-care (01) ==
LOC: HO.US 14:29
PROVIDERS: PCP Student in an Organized Health Care Education/Training Program; Visit Provider Student in an Organized Health Care Education/Training Program
DX: R09.A2 Foreign body sensation, throat (principal); R13.10 Dysphagia, unspecified
CPT/HCPCS: 76536

== ENCOUNTER → 2025-03-30 14:30 | Outpatient (BNV) | payer OTHER, SELFPAY | PROVIDERS: PCP Student in an Organized Health Care Education/Training Program; Visit Provider Radiology Diagnostic Radiology | DX: R13.10 Dysphagia, unspecified (principal) | CPT/HCPCS: 76536 ==

== ENCOUNTER 2025-04-28 09:12 | Outpatient (AMB) | payer OTHER, SELFPAY ==
[2025-04-28 09:14] VITALS: BP 132/80; PULSE 74; RESP 16; TEMP 36.8; O2SAT 99; BMI 26.1
--- NOTE | 2025-04-28 09:14 | AM.OFFWIN_ITS ---
Intake Vital Signs 04/28/25 09:14 Height 5 ft 9.09 in Weight 177 lb BMI 26.1 BP 132/80 Blood Pressure Location Lt brachial Position Sitting Respiration 16 Pulse 74 Pulse Source Pulse Oximeter Temp 98.2 F Temp Source Oral Pulse Oximetry (%) 99 Oxygen Delivery Method Room Air Intake Visit Reasons: EP- Hives, Fever, Headache Intake Note: EP complains of having unknown itchy hives started around the neck and spread all over his body two days ago. He developed shortly after other symtoms as itchy throat and headache. Patient Tobacco Use Status: Never used Tobacco Allergies No Known Allergies Allergy (Verified 04/28/25 09:25) Do you need a note to return to daycare/school/sports/work: Yes HPI HPI Comments 2 History of Present Illness Details History of Present Illness The patient is a 29 year old male presenting for evaluation of a widespread rash. - The patient reports the onset of a wid espread rash two days ago, which began on his neck and head before spreading over his entire body. - The rash is characterized as being pru ritic. Denies any significant pain associated with rash - Associated symptoms include myalgia, h eadaches, and nausea - Denies any vomiting, dizziness, edema, trouble swallowing, facial swelling, trouble breathing, - He noticed a temperature of 99.4 F las t night, otherwise denies any other fevers. - The patient denies exposure to any new lotions, soaps, detergents, medications, or foods. - He has been taking cetirizine daily fo r approximately one month. - The patient visited the emergency depa rtment at [facility] the previous day for this rash but left after waiting to be seen for a few hours. - Denies similar rash in the past, [facility] states he was diagnosed with Chicungunya in the past - He denies any known allergies - He denies any known insect bites or re cent travel outside of the country in the last 2 months. - He reports his childhood immunizations are up to date. - Denies a history of autoimmune conditi ons. Review of Systems - Constitutional: Reports a subjective f ever of 99.4?F the previous night. - Integumentary: Reports a pruritic rash over his entire body for two days. - HEENT: Reports headaches. Denies sore throat, lip swelling or tongue swelling. Denies dysphagia - Respiratory: Denies dyspnea or wheezin g - Gastrointestinal: Reports nausea. Saúl es vomiting - Musculoskeletal: Reports myalgias. Den ies erythema or swelling of the joints. - Neurological: Denies dizziness or ligh theadedness. Physical Exam General Appearance: Normal appearance, well developed. No acute distress HEENT: Normocephalic, atraumatic. No facial swelling noted. Oropharynx clear. Pulmonary: No respiratory distress. Speaking in full sentences. Lungs clear to auscultation bilaterally Musculoskeletal: Moving all extremities spontaneously and against gravity Skin: Patient noted to have urticaria along the scalp, neck, arms, groin, and legs bilaterally. No significant rash noted on the torso. Mental Status: Alert and Oriented x 3 Psychiatric: Normal mood. Normal affect. [facility] Medical History (Updated 03/25/25 @ 16:50 by Aiden Maradiaga MD) Sinusitis Neck pain, musculoskeletal Onychomycosis Dysphagia Globus pharyngeus Acid indigestion Family History Father No problems noted. Mother Diverticulitis High blood pressure Social History (Updated 03/25/25 @ 16:07 by Kaleb Siegel CMA) Housing: Apartment Alcohol intake: current Alcohol intake frequency: a few times a week Alcohol type: beer Patient Tobacco Use Status: Never used Tobacco e-Cigarette/Vaping Use: Never Used service: Yes Current occupational status: employed Cognitive needs: No Hearing needs: No Vision needs: No Physical Exam Vital Signs: Last Vital Signs Temp 98.2 F 04/28/25 09:14 Pulse 74 04/28/25 09:14 Resp 16 04/28/25 09:14 BP 132/80 04/28/25 09:14 Pulse Ox 99 04/28/25 09:14 Oxygen Delivery Method Room Air 04/28/25 09:14 BMI result Body Mass Index 26.1 Assessment & Plan Assessment & Plan (1) Urticaria: Code(s): L50.9 - Urticaria, unspecified Plan - The patient's presents with a diffuse, pruritic, erythematous raised rash - Based on history and physical exam, symptoms appear most consistent with acute urticaria. - Unclear etiology at this time as patient denies any new products, medications, food, or known allergies. - Discussed other differential such as infectious etiology, however no fevers, URI symptoms, or known insect bites - There are currently no signs of anaphylaxis such as dyspnea, wheezing, lightheadeness/dizziness, or oropharyngeal edema. - Continue taking cetirizine (Zyrtec) daily. A prescription for a Medrol Dosepak will be sent to [email or web address]; the patient was instructed to follow the package instructions for the 6-day tapering course. He was advised to apply a topical steroid like hydrocortisone cream for severe pruritus. He was educated to seek immediate medical attention in the emergency room for any signs of a severe reaction, including difficulty breathing, trouble swallowing, lip swelling, vomiting, or dizziness. - Discussed follow up at the walk in or with PCP if new symptoms such as fevers, joint swelling occur or if no improvement in symptoms over the next few days. Patient was informed and verbally consented to the use of an ambient scribe for clinic note documentation during the visit. Medications: New methylprednisolone PO PER PKG DIR for 6 days 21 ea 0RF Coding Level of Care Code Est Pt Level 3 (32572) Diagnoses Urticaria L50.9
== END 2025-04-28 09:52 | disposition home or self-care (01) ==
LOC: HO.HMCWIS 09:12
PROVIDERS: PCP Student in an Organized Health Care Education/Training Program; Visit Provider Family Medicine
DX: L50.9 Urticaria, unspecified (principal)